=== PATIENT | female | born 1945 | race Hispanic/Latino ===

== ENCOUNTER 2020-09-11 23:23 | Inpatient (IN) | payer MEDICARE ==
[~2020-09-11] VITALS: Ht 142.2 cm; Wt 51.1 kg
[2020-09-11 23:27] VITALS: BP 133/63
[2020-09-11 23:32] VITALS: BP 127/43
[2020-09-11] MEDS ORDERED: PROCHLORPERAZINE EDISYLATE 10 MG/2 ML VIAL IVP SCH (23:45)
[2020-09-11] MEDS ORDERED: FAMOTIDINE/PF 20 MG/2 ML VIAL IV SCH (23:45)
[2020-09-11] MEDS ORDERED: PANTOPRAZOLE 40 MG/VIAL IVP SCH (23:45)
[2020-09-11] MEDS ORDERED: SODIUM CHLORIDE 0.9% 1000ML 1,000 ML IV SCH (23:45)
[2020-09-11] MEDS ORDERED: ONDANSETRON HCL 4 MG/2 ML VIAL IVP SCH (23:45)
[2020-09-11] MEDS ORDERED: SODIUM CHLORIDE 0.9% 1000ML 1,000 ML IV ONE (23:46)
[2020-09-11 23:51] LABS: BASOPHILS % (AUTO) 0.5 % (0.0-5.0); EOSINOPHILS % (AUTO) 0.5 % (0.0-8.0); LYMPHOCYTES % (AUTO) 13.7 % (21.0-51.0); MEAN CORPUSCULAR HEMOGLOBIN 19.8 pg (27.0-33.0); MEAN CORPUSCULAR HGB CONC 28.8 g/dL (32.0-36.0); MEAN CORPUSCULAR VOLUME 68.8 fL (79-99); MONOCYTES % (AUTO) 7.6 % (3.0-13.0); NEUTROPHILS % (AUTO) 77.2 % (40.0-77.0); PLATELET COUNT (AUTO) 197 K/uL (130-400); RED BLOOD CELL COUNT(AUTO) 2.88 MIL/uL (4.00-5.50); RED CELL DISTRIBUTION WIDTH 16.2 % (11.0-15.5); WHITE BLOOD COUNT (AUTO) 4.1 K/uL (4.8-10.8)
[2020-09-12] VITALS (11 sets, daily range): BP systolic 102–135; BP diastolic 41–61
[2020-09-12 00:02] LABS: ALBUMIN 3.4 g/dL (3.5-5.0); BILIRUBIN,TOTAL 0.5 mg/dL (0.2-1.0); CREATININE 0.6 mg/dL (0.5-1.5); TOTAL PROTEIN, SERUM 7.4 g/dL (6.0-8.3)
[2020-09-12 00:36] LABS: HEMATOCRIT 19.8 % (36-48)
[2020-09-12] MEDS ORDERED: IOHEXOL 350 MG/ML 100ML INFUS..BTL IV ONE (00:49)
[2020-09-12 01:00] LABS: APPEARANCE,URINE Clear (CLEAR); BILIRUBIN,URINE Negative (NEGATIVE); COLOR,URINE Yellow (YELLOW); GLUCOSE, URINE (UA) >=1000 mg/dL (NEGATIVE); KETONES,URINE Trace mg/dL (NEGATIVE); LEUKOCYTE ESTERASE ,URINE Moderate (NEGATIVE); NITRATE,URINE Negative (NEGATIVE); OCCULT BLOOD,URINE Trace (NEGATIVE); PROTEIN,URINE Negative (NEGATIVE); UROBILINOGEN,URINE 0.2 mg/dL (0.2-1.0)
[2020-09-12] MEDS ORDERED: ONDANSETRON HCL 4 MG/2 ML VIAL IVP SCH (01:00)
[2020-09-12 01:21] LABS: BACTERIA,URINE Moderate /HPF (None Seen); RBC,URINE 0-1 /HPF (0-1)
[2020-09-12] MEDS: DiphenhydrAMINE HCL 50 MG/ML VIAL IV SCH ×2 (01:29→01:33)
[2020-09-12 01:49] LABS: PLATELET MORPHOLOGY LARGE PLTS PRESENT
[2020-09-12] MEDS ORDERED: ONDANSETRON HCL 4 MG/2 ML VIAL IVP PRN (02:00)
[2020-09-12] MEDS ORDERED: ACETAMINOPHEN 325 MG TAB PO PRN (02:00)
[2020-09-12] MEDS ORDERED: FUROSEMIDE 40MG VIAL (10MG/ML) IV SCH (02:30)
[2020-09-12] MEDS ORDERED: IPRATROPIUM/ALBUTEROL SULFATE 3 ML SOLUTION IH ONE (03:02)
[2020-09-12] MEDS: IPRATROPIUM/ALBUTEROL SULFATE 3 ML SOLUTION IH SCH ×5 (06:51→22:09)
[2020-09-12] MEDS: SODIUM CHLORIDE 1,000 MG TAB PO SCH ×3 (07:59→21:37)
[2020-09-12] MEDS: INSULIN HUMULIN R 100 UNIT/ML 3ML SQ SCH ×4 (08:18→20:56)
[2020-09-12] MEDS: PANTOPRAZOLE SODIUM 40 MG TABLET.DR PO SCH (10:00)
[2020-09-12 10:12] LABS: BASOPHILS % (AUTO) 0.4 % (0.0-5.0); HEMATOCRIT 30.8 % (36-48); LYMPHOCYTES % (AUTO) 8.6 % (21.0-51.0); MEAN CORPUSCULAR HGB CONC 31.2 g/dL (32.0-36.0); MEAN CORPUSCULAR VOLUME 73.9 fL (79-99); MONOCYTES % (AUTO) 9.6 % (3.0-13.0); PLATELET COUNT (AUTO) 190 K/uL (130-400); RED BLOOD CELL COUNT(AUTO) 4.17 MIL/uL (4.00-5.50); RED CELL DISTRIBUTION WIDTH 18.3 % (11.0-15.5)
[2020-09-12 10:21] LABS: CREATININE 0.8 mg/dL (0.5-1.5); MAGNESIUM 1.6 mg/dL (1.80-2.40); POTASSIUM 3.6 mmol/L (3.5-5.1)
[2020-09-12 10:22] LABS: % IRON SATURATION 6.1 % (22-44)
[2020-09-13] MEDS: SODIUM CHLORIDE 0.9% 1000ML 1,000 ML IV SCH ×2 (00:35→18:26)
[2020-09-13] MEDS ORDERED: VITAD50000 PO (02:07)
[2020-09-13] MEDS ORDERED: ROSU10TA28 PO (02:07)
[2020-09-13] MEDS ORDERED: DOCU100C33 PO (02:07)
[2020-09-13] MEDS ORDERED: LOSA1TAB37 PO (02:07)
[2020-09-13] MEDS ORDERED: AMLO-257 PO (02:07)
[2020-09-13] MEDS ORDERED: PIOG30TA70 PO (02:07)
[2020-09-13] MEDS ORDERED: GLIP2.5T2 PO (02:07)
[2020-09-13] MEDS ORDERED: NABU-141 PO (02:07)
[2020-09-13] MEDS ORDERED: METF-444 PO (02:07)
[2020-09-13] MEDS ORDERED: LORA10TA7 PO (02:07)
[2020-09-13] MEDS ORDERED: OMEP20TA25 PO (02:07)
[2020-09-13] MEDS: IPRATROPIUM/ALBUTEROL SULFATE 3 ML SOLUTION IH SCH (02:32)
[2020-09-13 03:47] VITALS: BP 122/50
[2020-09-13 05:44] LABS: BILIRUBIN,TOTAL 0.8 mg/dL (0.2-1.0); CREATININE 0.6 mg/dL (0.5-1.5); POTASSIUM 3.6 mmol/L (3.5-5.1); TOTAL PROTEIN, SERUM 6.6 g/dL (6.0-8.3)
[2020-09-13] MEDS: INSULIN HUMULIN R 100 UNIT/ML 3ML SQ SCH (06:49)
[2020-09-13] MEDS: PANTOPRAZOLE SODIUM 40 MG TABLET.DR PO SCH (09:02)
[2020-09-13] MEDS ORDERED: IOHEXOL-350 75 ML VIAL IV ONE (09:36)
[2020-09-13 09:58] VITALS: BP 124/62
[2020-09-13 12:35] VITALS: BP 139/63
[2020-09-13] MEDS ORDERED: PEG 3350/NA SULF,BICARB,CL/KCL 4000 ML SOLN PO SCH (14:15)
[2020-09-13] MEDS: CEFUROXIME AXETIL 250 MG TABLET PO SCH (15:08)
[2020-09-13] MEDS ORDERED: DOCUSATE SODIUM 100 MG CAP PO PRN (15:30)
[2020-09-13 16:37] VITALS: BP 138/59
[2020-09-13] MEDS: ATORVASTATIN CALCIUM 20 MG TABLET PO SCH (17:08)
[2020-09-13] MEDS: METFORMIN HCL 500 MG TABLET PO SCH (17:08)
[2020-09-13] MEDS: LORATADINE 10 MG TABLET PO SCH (17:09)
[2020-09-13 19:39] VITALS: BP 140/65
[2020-09-14] VITALS (20 sets, daily range): BP systolic 101–177; BP diastolic 43–107
[2020-09-14] MEDS: CEFUROXIME AXETIL 250 MG TABLET PO SCH ×2 (01:28→12:59)
[2020-09-14] MEDS: SODIUM CHLORIDE 0.9% 1000ML 1,000 ML IV SCH ×2 (02:25→15:45)
[2020-09-14] MEDS ORDERED: MIDAZOLAM HCL 1 MG/ML 2ML VIAL ONE (07:07)
[2020-09-14] MEDS ORDERED: LIDOCAINE HCL 1% 20 ML VIAL ONE (07:07)
[2020-09-14] MEDS ORDERED: PROPOFOL 10 MG/ML 20ML VIAL IV ONE (07:07)
[2020-09-14] MEDS ORDERED: EPINEPHRINE 1 MG/ML AMPULE ONE (07:10)
[2020-09-14] MEDS ORDERED: PHENYLEPHRINE HCL 10 MG/ML 1ML VIAL IV ONE (07:10)
[2020-09-14] MEDS: PANTOPRAZOLE SODIUM 40 MG TABLET.DR PO SCH (07:30)
[2020-09-14] MEDS: METFORMIN HCL 500 MG TABLET PO SCH ×2 (08:00→17:17)
[2020-09-14] MEDS ORDERED: NON-FORMULARY MEDICATION 1 EACH (Omeprazole 20 MG) PO SCH (09:00)
[2020-09-14] MEDS: **HM**(Nabumetone 500 MG PO SCH (09:00)
[2020-09-14] MEDS: LOSARTAN/HYDROCHLOROTHIAZIDE 50-12.5MG TABLET PO SCH (09:00)
[2020-09-14] MEDS ORDERED: LOSARTAN/HYDROCHLOROTHIAZIDE 50-12.5MG TABLET PO SCH (09:00)
[2020-09-14] MEDS: AMLODIPINE BESYLATE 5 MG TAB PO SCH (09:00)
[2020-09-14] MEDS: GLIPIZIDE XL 2.5MG TAB PO SCH (11:20)
[2020-09-14] MEDS: PIOGLITAZONE HCL 30 MG TAB PO SCH (11:21)
[2020-09-14] MEDS: LORATADINE 10 MG TABLET PO SCH (13:17)
[2020-09-14] MEDS: ATORVASTATIN CALCIUM 20 MG TABLET PO SCH (17:17)
[2020-09-14] MEDS: INSULIN HUMULIN R 100 UNIT/ML 3ML SQ SCH (21:00)
[2020-09-15] MEDS: CEFUROXIME AXETIL 250 MG TABLET PO SCH ×2 (01:15→12:35)
[2020-09-15 03:58] VITALS: BP 144/59
[2020-09-15 03:59] LABS: MEAN CORPUSCULAR HEMOGLOBIN 22.4 pg (27.0-33.0); MEAN CORPUSCULAR HGB CONC 29.6 g/dL (32.0-36.0); MEAN CORPUSCULAR VOLUME 75.5 fL (79-99); RED BLOOD CELL COUNT(AUTO) 3.71 MIL/uL (4.00-5.50); RED CELL DISTRIBUTION WIDTH 17.8 % (11.0-15.5); WHITE BLOOD COUNT (AUTO) 5.2 K/uL (4.8-10.8)
[2020-09-15 04:20] LABS: CREATININE 0.5 mg/dL (0.5-1.5); MAGNESIUM 1.9 mg/dL (1.80-2.40); POTASSIUM 3.8 mmol/L (3.5-5.1)
[2020-09-15] MEDS: INSULIN HUMULIN R 100 UNIT/ML 3ML SQ SCH ×2 (06:11→12:11)
[2020-09-15 08:14] VITALS: BP 144/57
[2020-09-15] MEDS: **HM**(Nabumetone 500 MG PO SCH (09:00)
[2020-09-15] MEDS: GLIPIZIDE XL 2.5MG TAB PO SCH (09:11)
[2020-09-15] MEDS: PIOGLITAZONE HCL 30 MG TAB PO SCH (09:12)
[2020-09-15] MEDS: LOSARTAN/HYDROCHLOROTHIAZIDE 50-12.5MG TABLET PO SCH (09:12)
[2020-09-15] MEDS: AMLODIPINE BESYLATE 5 MG TAB PO SCH (09:12)
[2020-09-15] MEDS: METFORMIN HCL 500 MG TABLET PO SCH (09:12)
[2020-09-15] MEDS: PANTOPRAZOLE SODIUM 40 MG TABLET.DR PO SCH (09:12)
[2020-09-15 11:45] VITALS: BP 127/54
[2020-09-15] MEDS: LORATADINE 10 MG TABLET PO SCH (14:04)
[2020-09-15 17:11] VITALS: BP 134/64
[2020-09-20] MEDS ORDERED: **HM**(Cholecalciferol (Vitamin D3) 50,000 UNITS PO SCH (09:00)
== END 2020-09-15 20:50 | disposition home or self-care (01) | DRG 378 ==
LOC: EDH 23:23 → EDHIP 09-12 01:15 → 3DH 09-12 21:12
PROVIDERS: ADMIT Internal Medicine Infectious Disease; ATTEND Internal Medicine Infectious Disease
PROC: 30233N1 Transfusion of Nonautologous Red Blood Cells into Peripheral Vein, Percutaneous Approach (ICD-10-PCS; principal; 2020-09-12)
PROC: 0DB98ZX Excision of Duodenum, Via Natural or Artificial Opening Endoscopic, Diagnostic (ICD-10-PCS; 2020-09-14)
PROC: 0DB68ZX Excision of Stomach, Via Natural or Artificial Opening Endoscopic, Diagnostic (ICD-10-PCS; 2020-09-14)
PROC: 0DJD8ZZ Inspection of Lower Intestinal Tract, Via Natural or Artificial Opening Endoscopic (ICD-10-PCS; 2020-09-14)
DX: K29.71 Gastritis, unspecified, with bleeding (principal); E87.1 Hypo-osmolality and hyponatremia; N39.0 Urinary tract infection, site not specified; J90 Pleural effusion, not elsewhere classified; E86.0 Dehydration; E11.9 Type 2 diabetes mellitus without complications; I10 Essential (primary) hypertension; E78.5 Hyperlipidemia, unspecified; E87.8 Other disorders of electrolyte and fluid balance, not elsewhere classified; K31.89 Other diseases of stomach and duodenum; D50.9 Iron deficiency anemia, unspecified; R53.81 Other malaise; B95.2 Enterococcus as the cause of diseases classified elsewhere; K59.00 Constipation, unspecified; Z83.3 Family history of diabetes mellitus
CPT/HCPCS: 36415; 43239; 45378; 71045; 74177; 80048; 80053; 81001; 82270; 82948; 83036; 83540; 83550; 83690; 83735; 83930; 83935; 84484; 85025; 85027; 86850; 86900; 86901; 86923; 87077; 87088; 87186; 93005; 94640; 94664; A4606; C9113; G0378; J0171; J0780; J1200; J1815; J1940; J2250; J2370; J2405; J2704; J3490; J7030; P9016; Q9967